=== PATIENT | male | born 1945 | race Caucasian/White ===

== ENCOUNTER 2022-05-30 09:25 | Emergency (ER) | payer MEDICARE ==
[~2022-05-30] VITALS: Ht 167.6 cm; Wt 99.8 kg
[2022-05-30] MEDS ORDERED: DEXAMETHASONE 4 MG TAB PO STA (09:47)
[2022-05-30] MEDS ORDERED: LIDOCAINE1 EACH EXT (09:48)
[2022-05-30] MEDS ORDERED: NAPROXEN250 MG PO (09:49)
== END 2022-05-30 10:43 | disposition home or self-care (01) ==
LOC: ER 09:34
DX: M54.6 Pain in thoracic spine (principal); M25.512 Pain in left shoulder; S29.012A Strain of muscle and tendon of back wall of thorax, initial encounter; G89.29 Other chronic pain; I10 Essential (primary) hypertension; E78.5 Hyperlipidemia, unspecified; I25.10 Atherosclerotic heart disease of native coronary artery without angina pectoris; K21.9 Gastro-esophageal reflux disease without esophagitis; I25.2 Old myocardial infarction
CPT/HCPCS: 99283; J8540